=== PATIENT | female | born 1965 | race Caucasian/White ===

== ENCOUNTER 2020-10-14 14:00 | Outpatient (RCR) | payer OTHER, BC, SELFPAY ==
[2020-10-03 08:07] VITALS: BP 106/64; PULSE 75; O2SAT 96
== END 2020-11-10 11:09 | disposition other institution (70) ==
LOC: HO.PTWFD 14:00
PROVIDERS: PCP Internal Medicine; Visit Provider Internal Medicine
DX: R42 Dizziness and giddiness (principal)
CPT/HCPCS: 95992; 97110; 97161

== ENCOUNTER 2020-11-23 07:19 | Outpatient (REF) | payer OTHER, BC, SELFPAY ==
[2020-11-23 10:42] LABS: Hematocrit 42.8 % (37-47); Hemoglobin 14.2 g/dl (12.0-16.0); Mean Corpuscular HGB Conc 33.2 g/dl (31.0-35.0); Mean Corpuscular Hemoglobin 28.2 pg (27.0-33.0); Mean Corpuscular Volume 85.1 fL (80-98); Mean Platelet Volume 10.4 fL (9.4-12.3); Platelet Count 252 X10*3/uL (160-400); Red Blood Count 5.03 X10*6/uL (4.20-5.50); White Blood Count 5.1 X10*3/uL (4.8-10.8)
[2020-11-23 10:44] LABS: Glucose Urine UA NEG (NEG); Leukocyte Esterase Urine NEG (NEG); Nitrite Urine NEG (NEG); Specific Gravity - Urine 1.015 (1.005-1.025); Urine Blood TRACE (NEG); Urine Ketones NEG (NEG); Urine Protein NEG (NEG-TRACE)
[2020-11-23 10:46] LABS: Appearance Urine CLEAR; Color Urine YELLOW
[2020-11-23 10:58] LABS: Bacteria Urine TRACE /LPF; RBC Urine 0-2 /HPF (0); Squamous Epithelial Cell Urine 1+ /LPF; WBC Urine 0-2 /HPF (0-4)
[2020-11-23 11:06] LABS: Alanine Aminotransferase 12 U/L (0-31); Albumin Level 4.4 g/dL (3.5-5.0); Alkaline Phosphatase 63 U/L (39-117); Anion Gap 15 (12-20); Aspartate Amino Transferase 17 U/L (5-31); Bilirubin Total 0.6 mg/dL (0.0-1.0); Blood Urea Nitrogen 11 mg/dL (9-16); Carbon Dioxide 26 mmol/L (22-29); Chloride 105 mmol/L (96-108); Cholesterol 204 mg/dL; Estimated Glomerular Filt Rate > 60; Glucose Fasting 95 mg/dL (60-99); HDL Cholesterol 62 mg/dL; LDL Cholesterol Calculated 122 mg/dl; Potassium 4.9 mmol/L (3.3-5.1); Sodium 141 mmol/L (135-145); Total Protein 6.7 g/dL (6.5-8.0); Triglycerides 102 mg/dL
[2020-11-23 11:30] LABS: TSH reflex Free T4 2.73 uIU/mL (0.32-4.0)
== END 2020-11-23 07:20 | disposition home or self-care (01) ==
LOC: HO.WFDLDS 07:19
PROVIDERS: Visit Provider Internal Medicine
DX: Z00.00 Encounter for general adult medical examination without abnormal findings (principal)
CPT/HCPCS: 36415; 80053; 80061; 81001; 84443; 85027

== ENCOUNTER 2021-03-17 14:00 | Outpatient (RCR) | payer OTHER, BC, SELFPAY ==
[2021-03-10 07:03] VITALS: BP 122/70; PULSE 62; O2SAT 97
== END 2021-07-07 14:49 | disposition home or self-care (01) ==
LOC: HO.PTWFD 14:00
PROVIDERS: Visit Provider Internal Medicine
DX: R42 Dizziness and giddiness (principal)
CPT/HCPCS: 95992; 97161; 97535

== ENCOUNTER 2021-04-25 09:22 | Emergency (ER) | payer OTHER, BC, SELFPAY ==
[2021-04-25 09:45] VITALS: BP 138/70; PULSE 82; RESP 7; TEMP 37; O2SAT 97; BMI 37.8
--- NOTE | 2021-04-25 10:11 | ED_ITS ---
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 when disposing of the needle after it had been injected in the patient she stuck her right thumb, the patient was an elderly woman who denied having HIV or hepatitis medical history is not known at this point of the source patient Related Data Previous Rx's Medication Instructions Recorded citalopram 20 mg tablet 20 mg PO DAILY #90 tab 06/30/20 fluticasone propionate 110 1 puff INHALATION BID #12 g 09/23/20 mcg/actuation HFA aerosol inhaler (Flovent HFA) montelukast 10 mg tablet 10 mg PO DAILY #90 tab 02/21/21 Allergies Allergy/AdvReac Type Severity Reaction Status Date / Time Sulfa (Sulfonamide Allergy Unknown RASH Unverified 05/12/20 19:13 Antibiotics) CHILD, rash [SULFA (SULFONAMIDE ANTIBIOTICS)] SEASONAL ALLERGIES Allergy Unknown SNEEZE Uncoded 05/12/20 19:13 WATERY EYES Review of Systems Review of Systems: Positive for needlestick Negatives are no fever no chills no dizziness no weakness no fainting no feeling faint no headache no neck pain no chest pain no shortness of breath no skin rash Yes all other systems are reviewed and are negative [facility] Past Medical History Medical History (Updated 04/26/21 @ 00:00 by Chas Alexander) Annual physical exam Chronic asthma Depression Onychomycosis Overweight Sleep apnea Thyroid nodule Vertigo Surgical History H/O colonoscopy Family History Family History (Updated 11/25/20 @ 09:14 by Sana Person RN) Father HTN (hypertension) Mother HTN (hypertension) Myocardial infarct Social History Social History (Updated 11/25/20 @ 09:15 by Sana Person RN) Alcohol intake: current Alcohol intake frequency: holidays/special occasions only Advance Directives: Yes Advance Directives Information Provided: Yes Advance Directives on File: No Patient : No Physical Exam Vital Signs: Vital Signs: Last Vital Signs Temp 98.6 F 04/25/21 09:45 Pulse 82 04/25/21 09:45 Resp 7 L 04/25/21 09:45 BP 138/70 04/25/21 09:45 Pulse Ox 97 04/25/21 09:45 Body Mass Index 37.8 General appearance no acute distress Head is normocephalic atraumatic Neck is supple Respiratory no distress Left hand had normal skin and the needle puncture wound was not visible, no bleeding no tenderness no swelling Course Course Course Narrative: Patient understands this is a low risk stick but given that we have no reliable information about the source patient there is some risk and opted to take the prophylaxis and try to find more information about the source patient Labs were sent and she will follow with [facility] Medical Decision Making Lab Data Result diagrams: 04/25/21 10:37 04/25/21 10:37 Labs: Lab Results 04/25/21 04/25/21 04/25/21 Range/Units 10:37 10:37 10:37 WBC 6.4 (4.8-10.8) X10*3/uL RBC 4.81 (4.20-5.50) X10*6/uL Hgb 13.6 (12.0-16.0) g/dl Hct 41.1 (37-47) % MCV 85.4 (80-98) fL MCH 28.3 (27.0-33.0) pg MCHC 33.1 (31.0-35.0) g/dl RDW 12.7 (11.0-16.0) % Plt Count 249 (160-400) X10*3/uL MPV 9.6 (9.4-12.3) fL Immature Gran % (Auto) 0.2 (0.0-0.4) % Neut % (Auto) 65.4 (45-73) % Lymph % (Auto) 25.4 (20-40) % Burnett % (Auto) 7.1 (2-11) % Eos % (Auto) 1.3 (0-4) % Baso % (Auto) 0.6 (0-2) % Lymph # (Auto) 1.6 (1.2-4.9) X10*3/uL Burnett # (Auto) 0.5 (0.1-1.2) X10*3/uL Eos # (Auto) 0.1 (0.0-0.4) X10*3/uL Baso # (Auto) 0.0 (0.0-0.2) X10*3/uL Abs Immat Gran (auto) 0.01 (0.00-0.03) X10*3/uL Absolute Neuts (auto) 4.2 (2.0-8.3) X10*3/uL Absolute Nucleated RBC 0.000 (0.0-0.012) X10*3/uL Nucleated RBC % (auto) 0.0 (0.0-0.2) /100WBC Sodium 140 (135-145) mmol/L Potassium 4.6 (3.3-5.1) mmol/L Chloride 107 (96-108) mmol/L Carbon Dioxide 25 (22-29) mmol/L Anion Gap 13 (12-20) BUN 16 (9-16) mg/dL Creatinine 0.86 (0.5-1.4) mg/dL Estim Creat Clear Calc 85.9 Estimated GFR > 60 Random Glucose 69 (60-115) mg/dL Calcium 9.7 D (8.4-10.2) mg/dL Total Bilirubin 0.4 (0.0-1.0) mg/dL Direct Bilirubin 0.2 (0.0-0.5) mg/dL AST 19 (5-31) U/L ALT 12 (0-31) U/L Alkaline Phosphatase 68 (39-117) U/L Total Protein 7.1 (6.5-8.0) g/dL Albumin 4.6 (3.5-5.0) g/dL Amylase 37 (28-100) U/L Lipase 36 (8-78) U/L Hep Bs Antigen Negative (Negative) Hep Bs Antibody NONREACTIVE (Nonreactive) Hep B Core Total Ab Nonreactive (Nonreactive) Hepatitis C Ab (EIA) Nonreactive (Nonreactive) HIV 1&2 Ab/P24 Ag 4thGn Nonreactive (Nonreactive) Discharge Plan Discharge Clinical Impression: Accidental hypodermic needlestick injury Patient Disposition: Home, Self-Care Additional Instructions: Because we have no reliable information on the source patient it was decided to start the HIV prophylaxis which is time dependent Follow with [facility] for lab results and help with decision making about continuation of prophylaxis for HIV It would be helpful to get medical history of the source patient to help decide the need for continued prophylaxis Return any time any worse condition or concerns Use sentress and Truvada as directed for HIV prophylaxis, you have a 5 day supply Prescriptions: No Action citalopram 20 mg tablet 20 mg PO DAILY Qty: 90 RF: 1 Flovent HFA 110 mcg/actuation HFA aerosol inhaler 1 puff inhalation BID Qty: 12 RF: 5 montelukast 10 mg tablet 10 mg PO DAILY Qty: 90 RF: 4 Referrals: [facility] [Provider Group] - 2 days (Needlestick injury, post exposure prophylaxis for HIV initiated) Stand Alone Forms: Work/School Release Interventions: ED Discharge Assessment Last Done: 04/25/21 11:06 Discharge Date/Time: 04/25/21 11:07
[2021-04-25 10:42] LABS: MANUAL DIFF FLAG NO
[2021-04-25 10:46] LABS: Basophils Percent Auto 0.6 % (0-2); Eosinophils Absolute Auto 0.1 X10*3/uL (0.0-0.4); Eosinophils Percent Auto 1.3 % (0-4); Hematocrit 41.1 % (37-47); Hemoglobin 13.6 g/dl (12.0-16.0); Imm Gran Abs Auto 0.01 X10*3/uL (0.00-0.03); Imm Gran Pct Auto 0.2 % (0.0-0.4); Lymphocytes Absolute Auto 1.6 X10*3/uL (1.2-4.9); Lymphocytes Percent Auto 25.4 % (20-40); Mean Corpuscular HGB Conc 33.1 g/dl (31.0-35.0); Mean Corpuscular Hemoglobin 28.3 pg (27.0-33.0); Mean Corpuscular Volume 85.4 fL (80-98); Mean Platelet Volume 9.6 fL (9.4-12.3); Monocytes Absolute Auto 0.5 X10*3/uL (0.1-1.2); Monocytes Percent Auto 7.1 % (2-11); Neutrophils Absolute Auto 4.2 X10*3/uL (2.0-8.3); Neutrophils Percent Auto 65.4 % (45-73); Platelet Count 249 X10*3/uL (160-400); Red Blood Count 4.81 X10*6/uL (4.20-5.50); Red Cell Distribution Width 12.7 % (11.0-16.0); White Blood Count 6.4 X10*3/uL (4.8-10.8)
[2021-04-25] MEDS: Post Exposure Medication Kit 1 KIT PO (10:48)
[2021-04-25 14:25] LABS: Alanine Aminotransferase 12 U/L (0-31); Albumin Level 4.6 g/dL (3.5-5.0); Alkaline Phosphatase 68 U/L (39-117); Anion Gap 13 (12-20); Aspartate Amino Transferase 19 U/L (5-31); Bilirubin Direct 0.2 mg/dL (0.0-0.5); Bilirubin Total 0.4 mg/dL (0.0-1.0); Blood Urea Nitrogen 16 mg/dL (9-16); Calcium 9.7 mg/dL (8.4-10.2); Carbon Dioxide 25 mmol/L (22-29); Chloride 107 mmol/L (96-108); Creatinine Clr Calc Pharmacy 85.9; Estimated Glomerular Filt Rate > 60; Glucose Random 69 mg/dL (60-115); Lipase 36 U/L (8-78); Potassium 4.6 mmol/L (3.3-5.1); Sodium 140 mmol/L (135-145); Total Protein 7.1 g/dL (6.5-8.0)
[2021-04-25 14:38] LABS: Amylase 37 U/L (28-100)
[2021-04-26 08:25] LABS: HBc Num1 0.07 S/CO (0.00-0.79); HBsAGNum1 0.16 S/CO (0.00-0.99); HIV AB/AG Nonreactive (Nonreactive); HIV Num 1 0.07 S/CO (0.00-0.99); Hepatitis B Core Antibody Nonreactive (Nonreactive); Hepatitis B Surface Antigen Negative (Negative); ~HepC Num1 0.19 S/CO (0.00-0.79); ~Hepatitis C Antibody Nonreactive (Nonreactive)
[2021-04-26 08:41] LABS: HBS Num1 0.34 mIU/mL (0-7.99); ~Hepatitis B Surface Antibody NONREACTIVE (Nonreactive)
== END 2021-04-25 11:07 | disposition home or self-care (01) ==
PROVIDERS: Physician Assistant Medical; Emergency Provider Emergency Medicine; PCP Internal Medicine
DX: Z77.21 Contact with and (suspected) exposure to potentially hazardous body fluids (principal)
CPT/HCPCS: 36415; 80048; 80076; 82150; 83690; 85025; 86704; 86706; 86803; 87340; 87389; 99283

== ENCOUNTER 2022-02-05 07:38 | Outpatient (REF) | payer OTHER, BC, SELFPAY ==
[2022-02-05 11:36] LABS: Alanine Aminotransferase 13 U/L (0-31); Albumin Level 4.3 g/dL (3.5-5.0); Alkaline Phosphatase 66 U/L (39-117); Aspartate Amino Transferase 15 U/L (5-31); Bilirubin Direct 0.2 mg/dL (0.0-0.5); Bilirubin Total 0.5 mg/dL (0.0-1.0); Cholesterol 233 mg/dL; HDL Cholesterol 60 mg/dL; LDL Cholesterol Calculated 153 mg/dl; Total Protein 6.8 g/dL (6.5-8.0); Triglycerides 102 mg/dL
[2022-02-05 11:52] LABS: Hepatitis B Core Antibody Nonreactive (Nonreactive)
[2022-02-05 11:54] LABS: HBS Num1 1.85 mIU/mL (0-7.99); HBc Num1 0.08 S/CO (0.00-0.79); HBsAGNum1 0.18 S/CO (0.00-0.99); HIV AB/AG Nonreactive (Nonreactive); HIV Num 1 0.06 S/CO (0.00-0.99); Hepatitis B Core Antibody Nonreactive (Nonreactive); Hepatitis B Surface Antigen Negative (Negative); ~Hepatitis B Surface Antibody NONREACTIVE (Nonreactive)
[2022-02-05 12:06] LABS: Vitamin D 25-OH Total 22.3 ng/mL (>30)
== END 2022-02-05 07:39 | disposition home or self-care (01) ==
LOC: HO.WFDLDS 07:38
PROVIDERS: Absent Provider Podiatrist; Visit Provider Internal Medicine
DX: Z00.00 Encounter for general adult medical examination without abnormal findings (principal); Z11.4 Encounter for screening for human immunodeficiency virus [HIV]; B35.1 Tinea unguium; X58.XXXA Exposure to other specified factors, initial encounter
CPT/HCPCS: 36415; 80061; 80076; 82306; 86704; 86706; 87340; 87389

== ENCOUNTER → 2022-04-23 10:55 | Outpatient (REF) | payer OTHER, BC, SELFPAY ==
--- NOTE | 2022-04-23 10:57 | HM_ITS ---
* Total monitoring time 6 days 23 hours. * Underlying rhythm is sinus. Average rate of 66/Min. Range 43 to 143/Min. * Rare supraventricular ectopy with minimal burden. * Very rare ventricular ectopy. * No sustained arrhythmias. * No patient events. MTDD
== END ==
LOC: HO.CARD 10:55
PROVIDERS: PCP Internal Medicine; Visit Provider Internal Medicine
DX: R00.1 Bradycardia, unspecified (principal); R42 Dizziness and giddiness
CPT/HCPCS: 93242

== ENCOUNTER 2022-05-25 08:07 | Outpatient (REF) | payer OTHER, BC, SELFPAY ==
[2022-05-25 11:56] LABS: MANUAL DIFF FLAG NO
[2022-05-25 12:00] LABS: Basophils Absolute Auto 0.1 X10*3/uL (0.0-0.2); Basophils Percent Auto 1.2 % (0-2); Eosinophils Absolute Auto 0.2 X10*3/uL (0.0-0.4); Eosinophils Percent Auto 3.1 % (0-4); Hematocrit 43.2 % (37.0-47.0); Hemoglobin 13.9 g/dl (12.0-16.0); Imm Gran Abs Auto 0.02 X10*3/uL (0.00-0.03); Imm Gran Pct Auto 0.4 % (0.0-0.4); Mean Corpuscular HGB Conc 32.2 g/dl (31.0-35.0); Mean Corpuscular Hemoglobin 27.4 pg (27.0-33.0); Mean Corpuscular Volume 85.2 fL (80.0-98.0); Mean Platelet Volume 9.8 fL (9.4-12.3); Monocytes Absolute Auto 0.4 X10*3/uL (0.1-1.2); Monocytes Percent Auto 7.4 % (2-11); Neutrophils Absolute Auto 3.6 x10*3/uL (2.0-8.3); Neutrophils Percent Auto 68.9 % (45-73); Platelet Count 265 X10*3/uL (160-400); Red Blood Count 5.07 X10*6/uL (4.20-5.50); White Blood Count 5.2 X10*3/uL (4.8-10.8)
[2022-05-25 12:08] LABS: Estimated Average Glucose 105 mg/dL; Hemoglobin A1c % 5.3 %
[2022-05-25 12:40] LABS: Alanine Aminotransferase 15 U/L (0-31); Albumin Level 4.4 g/dL (3.5-5.0); Alkaline Phosphatase 66 U/L (39-117); Anion Gap 12 (12-20); Aspartate Amino Transferase 18 U/L (5-31); Bilirubin Total 0.2 mg/dL (0.0-1.0); Blood Urea Nitrogen 15 mg/dL (9-16); Calcium 9.1 mg/dL (8.4-10.2); Carbon Dioxide 26 mmol/L (22-29); Chloride 106 mmol/L (96-108); Estimated Glomerular Filt Rate > 60; Glucose Fasting 91 mg/dL (60-99); Iron 96 mcg/dL (30-160); Percent Iron Saturation 25 % (15-50); Potassium 4.9 mmol/L (3.3-5.1); Sodium 139 mmol/L (135-145); Total Iron Binding Capacity 377 mcg/dL (228-428); Total Protein 6.9 g/dL (6.5-8.0); Unsaturated Iron Binding 281 ug/dL
[2022-05-25 12:52] LABS: TSH reflex Free T4 1.33 uIU/mL (0.32-4.0)
[2022-05-28 08:26] LABS: HBS Num1 1.22 mIU/mL (0-7.99); HBc Num1 0.07 S/CO (0.00-0.79); HBsAGNum1 0.15 S/CO (0.00-0.99); HIV AB/AG Nonreactive (Nonreactive); HIV Num 1 0.13 S/CO (0.00-0.99); Hepatitis B Core Antibody Nonreactive (Nonreactive); Hepatitis B Surface Antigen Negative (Negative); ~Hepatitis B Surface Antibody NONREACTIVE (Nonreactive)
== END 2022-05-25 08:08 | disposition home or self-care (01) ==
LOC: HO.WFDLDS 08:07
PROVIDERS: Visit Provider Internal Medicine
DX: Z00.00 Encounter for general adult medical examination without abnormal findings (principal); Z11.4 Encounter for screening for human immunodeficiency virus [HIV]; R42 Dizziness and giddiness; X58.XXXA Exposure to other specified factors, initial encounter
CPT/HCPCS: 36415; 80053; 83036; 83540; 83735; 84443; 85025; 86704; 86706; 87340; 87389

== ENCOUNTER → 2022-06-21 07:37 | Outpatient (REF) | payer OTHER, BC, SELFPAY ==
--- NOTE | 2022-06-21 07:39 | CA_ITS ---
Transthoracic Echocardiogram Patient (Last, First, Middle): Rand Sharma, Gender: Female Date of : 1965 Age: 57 Procedure Date: 06/21/2022 Procedure Type: Transthoracic Echocardiogram Location: OP Height: 162.56 cm Weight: 106.6 kg BSA: 2.09 m2 Heart Rate: bpm BP: 114 / 65 mmHg Attending Urologist: HARI Referring MD: Deepa Evangelista MD Symptoms: E78.5 - Hyperlipidemia, unspecified Study Quality: Fair Conclusions: - 1. Normal LV systolic function and diastolic filling pattern 2. Normal cardiac valvular Doppler 3. Normal RV systolic pressure 4. No gross pericardial effusion Findings Left Ventricle The visually estimated ejection fraction is between 55-60%. Spectral Doppler is indicative of a normal filling pattern. Right Ventricle Normal right ventricular cavity size and systolic function. Atria Both atria are normal in size. Interatrial shunt cannot be excluded. Aortic Valve Normal aortic valve structure and function. There is no aortic valve stenosis. There is no aortic valve regurgitation. Mitral Valve Normal mitral valve structure and function. There is trace mitral valve regurgitation. There is no mitral valve stenosis. Pulmonic Valve The pulmonic valve is likely normal. Tricuspid Valve Normal tricuspid valve structure. There is trace tricuspid valve regurgitation. The right ventricular systolic pressure is normal. The right ventricular systolic pressure is 15 mmHg. Normal right atrial pressure. There is no evidence of pulmonary hypertension. Great Vessels All visible segments of the aorta are normal in size. The pulmonary artery was not well visualized. Venous The inferior vena cava is normal in size and collapses greater than 50% with inspiration. Pericardium/Pleural There is no evidence of pericardial effusion. Prior Study Comparison No significant change compared to prior study dated: 05/21/2018. Measurements 2D Linear Measurements IVSd: 0.94 0.6-0.9/0.6-1.0 cm LVIDd: 4.88 3.9-5.3/4.2-5.9 cm LVIDd Index: 2.33 2.4-3.2/2.2-3.1 cm/m2 LVIDs: 2.99 2.0-3.6 cm LVPWd: 1.04 0.7-1.1 cm LA Diam: 3.40 2.7-3.8/3.0-4.0 cm LAIDs Index: 1.63 1.5-2.3 cm/m2 LV Mass: 307.44 67-162/88-224 g LV Mass Index: 147.10 43-95/49-115 g/m2 LVOT Diam: 2.30 3.0+(-)1.3 cm 2D Systolic Function EF 4C: 54.50 >55% EF 2C: 53.90 >55% Mitral Valve MV Pk E: 0.77 MV PK A: 0.64 MV Decel Time: 211.00 E/A: 1.20 E'Lateral: 12.20 E'Medial: 7.72 E/E' Med: 10.00 E/E' Lat: 6.30 PHT: 62.00 MVA PHT: 3.55 Decel Arthur: 3.65 Aortic Valve AoV Pk Heri: 1.30 AoV Mn Heri: 0.89 AoV VTI: 0.35 AoV Pk Grad: 7.00 Aov Mn Grad: 4.00 DESI Cont.VTI: 3.06 LVOT LVOT Pk Heri: 0.97 LVOT Mn Heri: 0.67 LVOT VTI: 0.26 LVOT Pk Grad: 4.00 LVOT Mn Grad: 2.00 LVOT Diam: 2.30 LVOT Area: 4.15 Diastolic Function MV Pk E: 0.77 MV Pk A: 0.64 E/A: 1.20 E'Medial: 7.72 E/E' Med: 10.00 E' Laterial: 12.20 E/E' Lat: 6.30 Right Ventricle TAPSE (mm): 26.30 TVS' Heri: 11.50 Tricuspid Valve TR Pk Heri: 1.71 TR Pk Grad: 12.00 RA Press: 3.00 RVSP: 15.00 Great Vessels Aorta Sinus of Valsalva: 3.94 2.0-3.[address] [place]: 3.16 1.7-3.4 cm Ao Asc: 3.60 2.1-3.4 cm Updated in Other Vendor System with Status of Final Chandler Francis MD electronically signed on 06/22/2022 8:31:02 AM with status of Final
== END ==
LOC: HO.CARD 07:37
PROVIDERS: PCP Internal Medicine; Visit Provider Internal Medicine
DX: R00.1 Bradycardia, unspecified (principal); E78.5 Hyperlipidemia, unspecified
CPT/HCPCS: 93306

== ENCOUNTER 2023-05-21 08:29 | Outpatient (REF) | payer OTHER, BC, SELFPAY ==
[2023-05-21 08:47] LABS: MANUAL DIFF FLAG NO
[2023-05-21 09:02] LABS: Basophils Absolute Auto 0.1 X10*3/uL (0.0-0.2); Basophils Percent Auto 0.8 % (0-2); Eosinophils Absolute Auto 0.1 X10*3/uL (0.0-0.4); Eosinophils Percent Auto 1.9 % (0-4); Hemoglobin 13.8 g/dl (12.0-16.0); Imm Gran Abs Auto 0.02 X10*3/uL (0.00-0.03); Imm Gran Pct Auto 0.3 % (0.0-0.4); Lymphocytes Absolute Auto 1.3 X10*3/uL (1.2-4.9); Lymphocytes Percent Auto 22.1 % (20-40); Mean Corpuscular HGB Conc 32.1 g/dl (31.0-35.0); Mean Corpuscular Hemoglobin 27.4 pg (27.0-33.0); Mean Corpuscular Volume 85.5 fL (80.0-98.0); Mean Platelet Volume 9.4 fL (9.4-12.3); Monocytes Absolute Auto 0.4 X10*3/uL (0.1-1.2); Monocytes Percent Auto 6.9 % (2-11); Platelet Count 278 X10*3/uL (160-400); Red Blood Count 5.03 X10*6/uL (4.20-5.50); Red Cell Distribution Width 13.3 % (11.0-16.0); White Blood Count 5.9 X10*3/uL (4.8-10.8)
[2023-05-21 09:45] LABS: Alanine Aminotransferase 9 U/L (0-31); Albumin Level 4.2 g/dL (3.5-5.0); Alkaline Phosphatase 73 U/L (39-117); Anion Gap 14 (12-20); Aspartate Amino Transferase 15 U/L (5-31); Bilirubin Total 0.6 mg/dL (0.0-1.0); Blood Urea Nitrogen 15 mg/dL (9-16); Calcium 9.4 mg/dL (8.4-10.2); Carbon Dioxide 23 mmol/L (22-29); Chloride 108 mmol/L (96-108); Cholesterol 200 mg/dL (<200); Estimated Glomerular Filt Rate > 60; Glucose Fasting 107 mg/dL (60-99); HDL Cholesterol 67 mg/dL (>40); LDL Cholesterol Calculated 116 mg/dL (<100); Potassium 4.5 mmol/L (3.3-5.1); Sodium 140 mmol/L (135-145); Triglycerides 87 mg/dL (<150)
[2023-05-21 09:52] LABS: TSH reflex Free T4 1.56 uIU/mL (0.32-4.0); Vitamin D 25-OH Total 34.6 ng/mL (>30)
== END 2023-05-21 08:30 | disposition home or self-care (01) ==
LOC: HO.LAB 08:29
PROVIDERS: PCP Internal Medicine; Visit Provider Internal Medicine
DX: Z00.00 Encounter for general adult medical examination without abnormal findings (principal); R00.1 Bradycardia, unspecified; E78.5 Hyperlipidemia, unspecified; E66.3 Overweight
CPT/HCPCS: 36415; 80053; 80061; 82306; 84443; 85025

== ENCOUNTER 2023-05-30 12:56 | Outpatient (AMB) | payer OTHER, BC, SELFPAY ==
[2023-05-30 12:57] VITALS: BP 122/76; PULSE 69; O2SAT 96; BMI 41.0
--- NOTE | 2023-05-30 12:57 | MHC.PC.OV ---
Vital Signs 05/30/23 12:57 Height 5 ft 4 in Weight 239 lb BMI 41.0 BP 122/76 Blood Pressure Location Lt brachial Position Sitting Pulse 69 Pulse Source Pulse Oximeter Pulse Oximetry (%) 96 Oxygen Delivery Method Room Air Intake Visit Reasons: annual PE Intake Note: Pt is here today for PE. Allergies Sulfa (Sulfonamide Antibiotics) [SULFA (SULFONAMIDE ANTIBIOTICS)] Allergy (Unknown, Unverified 05/30/23 12:59) RASH CHILD, rash SEASONAL ALLERGIES Allergy (Unknown, Uncoded 05/30/23 12:59) SNEEZE WATERY EYES Medication List - Last Reconciled 05/30/23 by Deepa Evangelista MD albuterol sulfate 90 mcg/actuation (ProAir HFA) 2 puffs inhalation Q6H PRN citalopram 20 mg PO DAILY CPAP CPAP supplies-tubing, head gear, Air fit N20 nasal cushion-medium fluticasone propionate 110 mcg/actuation (Flovent HFA) 1 puff inhalation BID montelukast 10 mg PO DAILY terbinafine HCl 250 mg PO DAILY Tobacco use date assessed: 05/30/23 Dental Screening Dental Screen Date: 05/30/23 Did you have a dental visit in the last 12 months?: Yes Did you have a dental problem in the last 6 months where you did not have access to dental care?: No Was dental information given to patient?: Patient has dentist HPI annual PE HPI Details Pt presents for PE. PFSH Medical History (Updated 05/30/23 @ 13:35 by Deepa Evangelista MD) Dysplastic nevi Needle exposure Onychomycosis Thyroid nodule Sleep apnea Depression Overweight Chronic asthma Annual physical exam Vertigo Surgical History (Updated 05/30/23 @ 13:35 by Deepa Evangelista MD) H/O colonoscopy Family History Father HTN (hypertension) Mother HTN (hypertension) Myocardial infarct Social History Housing: House Alcohol intake: current Alcohol intake frequency: holidays/special occasions only Patient Tobacco Use Status: Never used Tobacco e-Cigarette/Vaping Use: Never Used Current occupational status: employed Cognitive needs: No Hearing needs: No Vision needs: Yes Questionnaire PHQ-9 Over the last 2 weeks, how often have you been bothered by any of the following problems? 1. Little interest or pleasure in doing things: several days 2. Feeling down, depressed, or hopeless: not at all 3. Trouble falling or staying asleep, or sleeping too much: several days 4. Feeling tired or having little energy: not at all 5. Poor appetite or overeating: not at all 6. Feeling bad about yourself - or that you are a failure or have let yourself or your family down: not at all 7. Trouble concentrating on things, such as reading the newspaper or watching television: not at all 8. Moving or speaking so slowly that other people could have noticed. Or the opposite - being so fidgety or restless that you have been moving around a lot more than usual: not at all 9. Thoughts that you would be better off or of hurting yourself in some way: not at all Total score: 2 Depression Screening Interpretation: Negative Depression Screening Done: Yes Source: Developed by Drs. Peter Kothari, Leslee Fletcher, Jorge Lugo and colleagues, with an educational min from [employer]. Thrive Questionnaire Date Thrive assessed: 05/30/23 I am a: Patient What is your living situation today?: I have a steady place to live Within the past 12 months, did the food you bought not last and you didn't have the money to get more?: Never true Within the past 12 months, did you worry whether your food would run out before you got money to buy more?: Never true Do you have trouble paying for medicines?: No Do you have trouble getting transportation to medical appointments?: No Do you have trouble paying your heating and electricity bill?: No Do you have trouble taking care of your child, family member or friend?: No Do you have trouble with day-to-day activities such as bathing, preparing meals, shopping, managing finances, etc.?: No Are you currently unemployed and looking for a job?: No Are you interested in more education?: No Please select the resources that you would like help with: None AUDIT C Alcohol Use Questionnaire (AUDIT-C) 1. How often do you have a drink containing alcohol?: Monthly or less 2. How many drinks containing alcohol do you have on a typical day when you are drinking?: 1 or 2 3. How often do you have six or more drinks on one occasion?: Never Total Score: 1 GERTRUDIS-7 AMB Questionnaire GERTRUDIS-7 Date GERTRUDIS - 7 assessed: 05/30/23 Feeling nervous, anxious, or on edge: 1 = Several days Not being able to stop or control worryin = Not at all Worrying too much about different things: 0 = Not at all Trouble relaxin = Not at all Being so restless that it is hard to sit still: 0 = Not at all Becoming easily annoyed or irritable: 1 = Several days Feeling afraid as if something awful might happen: 0 = Not at all Total GERTRUDIS-7 score (0-4 normal; 5-9 mild; 10-14 moderate; 15-21 severe): 2 Source: Developed by Drs. Peter Kothari, Leslee Fletcher, Jorge Lugo and colleagues, with an educational min from [employer]. Review of Systems Const All systems reviewed & are unremarkable except as noted in HPI and below Reports no additional complaints Eyes Reports no additional complaints ENT Reports no additional complaints Card Reports no additional complaints Resp Reports no additional complaints GI Reports no additional complaints Reports no additional complaints Physical exam (Primary Care) Vital Signs: Last Vital Signs Pulse 69 05/30/23 12:57 BP 122/76 05/30/23 12:57 Pulse Ox 96 05/30/23 12:57 Oxygen Delivery Method Room Air 05/30/23 12:57 BMI result Body Mass Index 41.0 Tobacco/Smoking Status: Tobacco use Status Tobacco use date assessed 05/30/23 05/30/23 13:01 Patient Tobacco Use Status Never used Tobacco 05/30/23 13:01 e-Cigarette/Vaping Use Never Used 05/30/23 12:57 Depression Screening Interpretation: Negative Thrive Assessment: Date of Thrive Assessment Date Thrive assessed 05/29/22 05/30/23 12:57 Const General: no acute distress HENMT Head: Yes normal to inspection Face and sinus: Yes normal facial exam Throat: Yes posterior oropharynx normal Eyes General: appearance normal, both eyes and all related structures Neck Neck: Yes no lymphadenopathy and Yes supple Resp Effort & Inspection: normal respiratory effort Auscultation: clear to auscultation bilaterally Cardio Rhythm: regular rhythm Heart sounds: S1 normal heart sound present and S2 normal heart sound present GI Inspection: Yes normal to inspection Palpation (GI): Soft to palpation Percussion: Yes normal to percussion Auscultation: normal bowel sounds Assessment and Plan Assessment & Plan (1) Normal pelvic exam: Comment: nipple maker En, +HPV 06/2023 Code(s): Z01.419 - Encounter for gynecological examination (general) (routine) without abnormal findings (2) Hyperlipidemia: Code(s): E78.5 - Hyperlipidemia, unspecified Plan: Continue low-cholesterol diet (3) Annual physical exam: Code(s): Z00.00 - Encounter for general adult medical examination without abnormal findings Plan: Well-balanced diet regular exercise discussed with the patient. She is up today with a mammogram Pap smear and colonoscopy. Continue citalopram for chronic anxiety. Return for physical in 1 year (4) Overweight: Code(s): E66.3 - Overweight Plan: Weight loss discussed with the patient (5) Hx of screening mammography: Comment: [facility] 2022 Code(s): Z92.89 - Personal history of other medical treatment Orders: Orders Comprehensive [place]. Panel Fast 365 Days E66.3 - Overweight, E78.5 - Hyperlipidemia, unspecified, Z00.00 - Encounter for general adult medical examination without abnormal findings Complete Blood Count Auto Diff 365 Days E66.3 - Overweight, E78.5 - Hyperlipidemia, unspecified, Z00.00 - Encounter for general adult medical examination without abnormal findings TSH reflex Free T4 365 Days E66.3 - Overweight, E78.5 - Hyperlipidemia, unspecified, Z00.00 - Encounter for general adult medical examination without abnormal findings Lipid Panel 365 Days E66.3 - Overweight, E78.5 - Hyperlipidemia, unspecified, Z00.00 - Encounter for general adult medical examination without abnormal findings Medications: Refilled citalopram 20 mg PO DAILY 90 tabs 3RF Coding Level of Care Code Est Pt Prev Care 40-64y(51824) Diagnoses Normal pelvic exam Z01.419 Hyperlipidemia E78.5 Annual physical exam Z00.00 Overweight E66.3 Hx of screening mammography Z92.89
== END 2023-05-30 13:39 | disposition home or self-care (01) ==
PROVIDERS: Visit Provider Internal Medicine
DX: Z00.00 Encounter for general adult medical examination without abnormal findings (principal); E78.5 Hyperlipidemia, unspecified; E66.3 Overweight; Z92.89 Personal history of other medical treatment
CPT/HCPCS: 99396

== ENCOUNTER 2024-06-09 08:03 | Outpatient (REF) | payer OTHER, BC, SELFPAY ==
[2024-06-09 11:11] LABS: MANUAL DIFF FLAG NO
[2024-06-09 11:29] LABS: Basophils Absolute Auto 0.1 X10*3/uL (0.0-0.2); Basophils Percent Auto 0.9 % (0-2); Eosinophils Absolute Auto 0.1 X10*3/uL (0.0-0.4); Eosinophils Percent Auto 2.2 % (0-4); Hematocrit 42.2 % (37.0-47.0); Hemoglobin 13.8 g/dl (12.0-16.0); Imm Gran Abs Auto 0.03 X10*3/uL (0.00-0.03); Imm Gran Pct Auto 0.5 % (0.0-0.4); Lymphocytes Absolute Auto 1.3 X10*3/uL (1.2-4.9); Lymphocytes Percent Auto 22.7 % (20-40); Mean Corpuscular HGB Conc 32.7 g/dl (31.0-35.0); Mean Corpuscular Hemoglobin 27.5 pg (27.0-33.0); Mean Corpuscular Volume 84.1 fL (80.0-98.0); Mean Platelet Volume 9.5 fL (9.4-12.3); Monocytes Absolute Auto 0.4 X10*3/uL (0.1-1.2); Monocytes Percent Auto 6.5 % (2-11); Neutrophils Absolute Auto 3.9 x10*3/uL (2.0-8.3); Neutrophils Percent Auto 67.2 % (45-73); Platelet Count 290 X10*3/uL (160-400); Red Blood Count 5.02 X10*6/uL (4.20-5.50); Red Cell Distribution Width 13.2 % (11.0-16.0); White Blood Count 5.8 X10*3/uL (4.8-10.8)
[2024-06-09 11:52] LABS: Alanine Aminotransferase 13 U/L (0-31); Albumin Level 4.2 g/dL (3.5-5.0); Alkaline Phosphatase 71 U/L (39-117); Anion Gap 12 (12-20); Aspartate Amino Transferase 16 U/L (5-31); Bilirubin Total 0.4 mg/dL (0.0-1.0); Blood Urea Nitrogen 15 mg/dL (9-16); Calcium 9.4 mg/dL (8.4-10.2); Carbon Dioxide 26 mmol/L (22-29); Chloride 108 mmol/L (96-108); Cholesterol 210 mg/dL (<200); Estimated Glomerular Filt Rate > 60; Glucose Fasting 106 mg/dL (60-99); HDL Cholesterol 60 mg/dL (>40); LDL Cholesterol Calculated 124 mg/dL (<100); Potassium 4.1 mmol/L (3.3-5.1); Sodium 142 mmol/L (135-145); Total Protein 6.9 g/dL (6.5-8.0); Triglycerides 134 mg/dL (<150)
== END 2024-06-09 08:04 | disposition home or self-care (01) ==
LOC: HO.WFDLDS 08:03
PROVIDERS: Visit Provider Internal Medicine
DX: Z00.00 Encounter for general adult medical examination without abnormal findings (principal); E66.3 Overweight; E78.5 Hyperlipidemia, unspecified
CPT/HCPCS: 36415; 80053; 80061; 84443; 85025

== ENCOUNTER 2024-06-12 11:35 | Outpatient (AMB) | payer OTHER, BC, SELFPAY ==
[2024-06-12 11:40] VITALS: BP 122/80; PULSE 78; O2SAT 98; BMI 43.1
--- NOTE | 2024-06-12 11:40 | MHC.PC.OV ---
Vital Signs 06/12/24 11:40 Height 5 ft 4 in Weight 251 lb BMI 43.1 BP 122/80 Blood Pressure Location Rt brachial Position Sitting Pulse 78 Pulse Source Pulse Oximeter Pulse Oximetry (%) 98 Oxygen Delivery Method Room Air Intake Visit Reasons: Annual PE Intake Note: pt is here for annual exam, mammo up to date Equipment Maint Tech Required: No Accompanied by: Self / Same As Patient Allergies Sulfa (Sulfonamide Antibiotics) [SULFA (SULFONAMIDE ANTIBIOTICS)] Allergy (Unknown, Verified 06/12/24 11:40) RASH CHILD, rash SEASONAL ALLERGIES Allergy (Unknown, Uncoded 05/30/23 12:59) SNEEZE WATERY EYES Medication List - Last Reconciled 06/12/24 by Deepa Evangelista MD albuterol sulfate 90 mcg/actuation (ProAir HFA) 2 puffs inhalation Q6H PRN citalopram 20 mg PO DAILY CPAP CPAP supplies-tubing, head gear, Air fit N20 nasal cushion-medium fluticasone propionate 110 mcg/actuation (Flovent HFA) 1 puff inhalation BID montelukast 10 mg PO DAILY Tobacco use date assessed: 06/12/24 Dental Screening Dental Screen Date: 06/12/24 Did you have a dental visit in the last 12 months?: Yes Did you have a dental problem in the last 6 months where you did not have access to dental care?: No Was dental information given to patient?: Patient has dentist HPI Annual PE HPI Details Patient presents for physical. She has been decreasing caloric intake increasing exercise trying to lose weight unsuccessfully for 6 months. [facility] Medical History Dysplastic nevi Needle exposure Onychomycosis Thyroid nodule Sleep apnea Depression Overweight Chronic asthma Annual physical exam Vertigo Surgical History H/O colonoscopy Family History Father HTN (hypertension) Mother HTN (hypertension) Myocardial infarct Social History Housing: House Alcohol intake: current Alcohol intake frequency: holidays/special occasions only Patient Tobacco Use Status: Never used Tobacco e-Cigarette/Vaping Use: Never Used Current occupational status: employed Cognitive needs: No Hearing needs: No Vision needs: Yes Questionnaire PHQ-9 Over the last 2 weeks, how often have you been bothered by any of the following problems? 1. Little interest or pleasure in doing things: several days 2. Feeling down, depressed, or hopeless: several days 3. Trouble falling or staying asleep, or sleeping too much: not at all 4. Feeling tired or having little energy: several days 5. Poor appetite or overeating: several days 6. Feeling bad about yourself - or that you are a failure or have let yourself or your family down: several days 7. Trouble concentrating on things, such as reading the newspaper or watching television: not at all 8. Moving or speaking so slowly that other people could have noticed. Or the opposite - being so fidgety or restless that you have been moving around a lot more than usual: not at all 9. Thoughts that you would be better off or of hurting yourself in some way: not at all Total score: 5 Depression Screening Interpretation: Negative Depression Screening Done: Yes 80733 - PHQ-9 Billing: Yes Source: Developed by Drs. Peter Kothari, Leslee Fletcher, Jorge Lugo and colleagues, with an educational min from [employer]. Thrive Questionnaire Date Thrive assessed: 06/12/24 I am a: Patient What is your living situation today?: I have a steady place to live Within the past 12 months, did the food you bought not last and you didn't have the money to get more?: Never true Within the past 12 months, did you worry whether your food would run out before you got money to buy more?: Never true Do you have trouble paying for medicines?: No Do you have trouble getting transportation to medical appointments?: No Do you have trouble paying your heating and electricity bill?: No Do you have trouble taking care of your child, family member or friend?: No Do you have trouble with day-to-day activities such as bathing, preparing meals, shopping, managing finances, etc.?: No Are you currently unemployed and looking for a job?: No Are you interested in more education?: No Please select the resources that you would like help with: None Currently or been in a relationship where the following occur: No concerns reported THRIVE Score: 0 AUDIT C Alcohol Use Questionnaire (AUDIT-C) 1. How often do you have a drink containing alcohol?: 2-4 times a month 2. How many drinks containing alcohol do you have on a typical day when you are drinking?: 1 or 2 3. How often do you have six or more drinks on one occasion?: Never Total Score: 2 Score Reviewed/Action Taken: Yes GERTRUDIS-7 AMB Questionnaire GERTRUDIS-7 Date GERTRUDIS - 7 assessed: 06/12/24 Feeling nervous, anxious, or on edge: 1 = Several days Not being able to stop or control worryin = Several days Worrying too much about different things: 1 = Several days Trouble relaxin = Several days Being so restless that it is hard to sit still: 0 = Not at all Becoming easily annoyed or irritable: 1 = Several days Feeling afraid as if something awful might happen: 0 = Not at all Total GERTRUDIS-7 score (0-4 normal; 5-9 mild; 10-14 moderate; 15-21 severe): 5 Source: Developed by Drs. Peter Kothari, Leslee Fletcher, Jorge Lugo and colleagues, with an educational min from [employer]. GERTRUDIS-7 Assessment Billing GERTRUDIS-7 Assessment Tool: GERTRUDIS-7 Assessment 63727 Review of Systems Const All systems reviewed & are unremarkable except as noted in HPI and below ENT Reports no additional complaints Card Reports no additional complaints Resp Reports no additional complaints GI Reports no additional complaints Reports no additional complaints Physical exam (Primary Care) Vital Signs: Last Vital Signs Pulse 78 06/12/24 11:40 BP 122/80 06/12/24 11:40 Pulse Ox 98 06/12/24 11:40 Oxygen Delivery Method Room Air 06/12/24 11:40 BMI result Body Mass Index 43.1 Tobacco/Smoking Status: Tobacco use Status Tobacco use date assessed 06/12/24 06/12/24 11:48 Patient Tobacco Use Status Never used Tobacco 06/12/24 11:48 e-Cigarette/Vaping Use Never Used 06/12/24 11:48 PHQ-9: PHQ-9 Score PHQ-9: Total score 5 06/12/24 11:48 Depression Screening Interpretation: Negative Thrive Assessment: Date of Thrive Assessment Date Thrive assessed 06/12/24 06/12/24 11:48 Currently or been in a relationship where the following occur: No concerns reported Const General: no acute distress HENMT Head: Yes normal to inspection Ears: hearing grossly normal bilaterally Face and sinus: Yes normal facial exam Throat: Yes posterior oropharynx normal Eyes General: appearance normal, both eyes and all related structures Neck Neck: Yes no lymphadenopathy and Yes supple Resp Effort & Inspection: normal respiratory effort Auscultation: clear to auscultation bilaterally Cardio Rhythm: regular rhythm Heart sounds: S1 normal heart sound present and S2 normal heart sound present GI Inspection: Yes normal to inspection Palpation (GI): Soft to palpation Percussion: Yes normal to percussion Auscultation: normal bowel sounds Coding Level of Care Code Est Pt Prev Care 40-64y(56746) Diagnoses Annual physical exam Z00.00 Overweight E66.3 Hyperlipidemia E78.5 Additional Codes GERTRUDIS-7 Assessment Billing - GERTRUDIS-7 Assessment Tool: GERTRUDIS-7 Assessment 13955 ([id number]) Assessment & Plan Assessment & Plan (1) Annual physical exam: Code(s): Z00.00 - Encounter for general adult medical examination without abnormal findings Category: Medical Plan: Well-balanced diet regular physical activity weight loss discussed with the patient. She is up-to-date with mammogram colonoscopy and Pap smear by manager line (2) Overweight: Comment: BMI is 43.1 06/18 Code(s): E66.3 - Overweight Category: Medical Plan: Decreasing caloric intake increasing physical activity the and weight loss discussed with the patient. she will Zebound to facilitate weight lost and decrease cardiovascular complications of obesity including coronary artery disease heart attack CVA. 2.5 mg weekly we will be tried for the 1st month. Side effects discussed with the patient. (3) Hyperlipidemia: Code(s): E78.5 - Hyperlipidemia, unspecified Category: Medical Plan: Low-cholesterol diet and discussed with the patient Orders: Orders Comprehensive Hope. Panel Fast 1 Year E66.3 - Overweight, E78.5 - Hyperlipidemia, unspecified, Z00.00 - Encounter for general adult medical examination without abnormal findings Complete Blood Count Auto Diff 1 Year E66.3 - Overweight, E78.5 - Hyperlipidemia, unspecified, Z00.00 - Encounter for general adult medical examination without abnormal findings Lipid Panel 1 Year E66.3 - Overweight, E78.5 - Hyperlipidemia, unspecified, Z00.00 - Encounter for general adult medical examination without abnormal findings Hemoglobin A1c 1 Year E66.3 - Overweight, E78.5 - Hyperlipidemia, unspecified, Z00.00 - Encounter for general adult medical examination without abnormal findings TSH reflex Free T4 1 Year E66.3 - Overweight, E78.5 - Hyperlipidemia, unspecified, Z00.00 - Encounter for general adult medical examination without abnormal findings UA w Microscopic 1 Year E66.3 - Overweight, E78.5 - Hyperlipidemia, unspecified, Z00.00 - Encounter for general adult medical examination without abnormal findings Medications: New tretinoin 0.025% (Retin-A) 1 appl topical BEDTIME 15 grams 0RF Zepbound (tirzepatide (weight loss)) for 4 weeks 2.5 mg (0.5 mL) subcut QWEEK 2 mL 1RF NS
== END 2024-06-12 12:32 | disposition home or self-care (01) ==
PROVIDERS: PCP Internal Medicine; Visit Provider Internal Medicine
DX: Z00.00 Encounter for general adult medical examination without abnormal findings (principal); E66.3 Overweight; E78.5 Hyperlipidemia, unspecified

== ENCOUNTER → 2024-06-12 11:35 | Outpatient (BNVA) | payer OTHER, BC, SELFPAY | PROVIDERS: PCP Internal Medicine; Visit Provider Internal Medicine | DX: Z00.00 Encounter for general adult medical examination without abnormal findings (principal); E66.3 Overweight; Z68.41 Body mass index [BMI] 40.0-44.9, adult; E78.5 Hyperlipidemia, unspecified | CPT/HCPCS: 96127 ==

== ENCOUNTER 2024-09-28 13:29 | Outpatient (AMB) | payer OTHER, BC, SELFPAY ==
[2024-09-28 13:35] VITALS: BP 122/82; PULSE 81; RESP 20; TEMP 36.7; O2SAT 97; BMI 41.4
--- NOTE | 2024-09-28 13:35 | A.OFFPC_ITS ---
Vital Signs 09/28/24 13:35 Height 5 ft 4 in Weight 241 lb BMI 41.4 BP 122/82 Blood Pressure Location Lt brachial Position Sitting Respiration 20 Pulse 81 Pulse Source Pulse Oximeter Temp 98.1 F Temp Source Oral Pulse Oximetry (%) 97 Oxygen Delivery Method Room Air Intake Visit Reasons: Follow up on weight med Intake Note: Pt is here today for a follow up visit on weight medication. Allergies Sulfa (Sulfonamide Antibiotics) [SULFA (SULFONAMIDE ANTIBIOTICS)] Allergy (Unknown, Verified 09/28/24 13:36) RASH CHILD, rash SEASONAL ALLERGIES Allergy (Unknown, Uncoded 09/28/24 13:36) SNEEZE WATERY EYES Medication List - Last Reconciled 09/28/24 by Deepa Evangelista MD albuterol sulfate 90 mcg/actuation (ProAir HFA) 2 puffs inhalation Q6H PRN cetirizine (Zyrtec) 10 mg PO DAILY PRN citalopram 20 mg PO DAILY CPAP CPAP supplies-tubing, head gear, Air fit N20 nasal cushion-medium fluticasone propionate 110 mcg/actuation (Flovent HFA) 1 puff inhalation BID montelukast 10 mg PO DAILY tretinoin 0.025% (Retin-A) 1 appl topical BEDTIME Zepbound (tirzepatide (weight loss)) 5 mg (0.5 mL) subcut QWEEK NS Tobacco use date assessed: 09/28/24 Dental Screening Dental Screen Date: 09/28/24 Did you have a dental visit in the last 12 months?: Yes Did you have a dental problem in the last 6 months where you did not have access to dental care?: No Was dental information given to patient?: Patient has dentist HPI Follow up on weight med HPI Details Pt presents for the follow-up on taking Zepbound for 3 more. Patient lost 10 lb and has been tolerating medication well. She reports decreasing caloric intake and being more physically active. [facility] Medical History (Updated 09/28/24 @ 14:11 by Deepa Evangelista MD) Chronic asthma Dysplastic nevi Needle exposure Onychomycosis Thyroid nodule Sleep apnea Depression Overweight Annual physical exam Vertigo Surgical History H/O colonoscopy Family History Father HTN (hypertension) Mother HTN (hypertension) Myocardial infarct Social History Housing: House Alcohol intake: current Alcohol intake frequency: holidays/special occasions only Patient Tobacco Use Status: Never used Tobacco e-Cigarette/Vaping Use: Never Used service: No Current occupational status: employed Cognitive needs: No Hearing needs: No Vision needs: Yes Questionnaire PHQ-9 Over the last 2 weeks, how often have you been bothered by any of the following problems? 1. Little interest or pleasure in doing things: not at all 2. Feeling down, depressed, or hopeless: not at all 3. Trouble falling or staying asleep, or sleeping too much: not at all 4. Feeling tired or having little energy: not at all 5. Poor appetite or overeating: not at all 6. Feeling bad about yourself - or that you are a failure or have let yourself or your family down: not at all 7. Trouble concentrating on things, such as reading the newspaper or watching television: not at all 8. Moving or speaking so slowly that other people could have noticed. Or the o pposite - being so fidgety or restless that you have been moving around a lot more than usual: not at all 9. Thoughts that you would be better off or of hurting yourself in some way: not at all Total score: 0 Depression Screening Interpretation: Negative Depression Screening Done: Yes 36063 - PHQ-9 Billing: Yes Source: Developed by Drs. Peter Kothari, Leslee Fletcher, Jorge Lugo and colleagues, with an educational min from [email or web address]. Thrive Questionnaire Date Thrive assessed: 09/28/24 I am a: Patient What is your living situation today?: I have a steady place to live Within the past 12 months, did the food you bought not last and you didn't have the money to get more?: Never true Within the past 12 months, did you worry whether your food would run out before you got money to buy more?: Never true Do you have trouble paying for medicines?: No Do you have trouble getting transportation to medical appointments?: No Do you have trouble paying your heating and electricity bill?: No Do you have trouble taking care of your child, family member or friend?: No Do you have trouble with day-to-day activities such as bathing, preparing meals, shopping, managing finances, etc.?: No Are you currently unemployed and looking for a job?: No Are you interested in more education?: No Please select the resources that you would like help with: None Currently or been in a relationship where the following occur: No concerns reported THRIVE Score: 0 AUDIT C Alcohol Use Questionnaire (AUDIT-C) 1. How often do you have a drink containing alcohol?: 2-4 times a month 2. How many drinks containing alcohol do you have on a typical day when you are drinking?: 1 or 2 3. How often do you have six or more drinks on one occasion?: Never Total Score: 2 GERTRUDIS-7 AMB Questionnaire GERTRUDIS-7 Date GERTRUDIS - 7 assessed: 09/28/24 Feeling nervous, anxious, or on edge: 0 = Not at all Not being able to stop or control worryin = Not at all Worrying too much about different things: 0 = Not at all Trouble relaxin = Not at all Being so restless that it is hard to sit still: 0 = Not at all Becoming easily annoyed or irritable: 0 = Not at all Feeling afraid as if something awful might happen: 0 = Not at all Total GERTRUDIS-7 score (0-4 normal; 5-9 mild; 10-14 moderate; 15-21 severe): 0 Source: Developed by Drs. Peter Kothari, Leslee Fletcher, Jorge Lugo and colleagues, with an educational min from [email or web address]. GERTRUDIS-7 Assessment Billing GERTRUDIS-7 Assessment Tool: GERTRUDIS-7 Assessment 49170 Review of Systems Const All systems reviewed & are unremarkable except as noted in HPI and below Eyes Reports no additional complaints ENT Reports no additional complaints Card Reports no additional complaints Resp Reports no additional complaints GI Reports no additional complaints Reports no additional complaints Physical exam (Primary Care) Vital Signs: Last Vital Signs Temp 98.1 F 09/28/24 13:35 Pulse 81 09/28/24 13:35 Resp 20 09/28/24 13:35 BP 122/82 09/28/24 13:35 Pulse Ox 97 09/28/24 13:35 Oxygen Delivery Method Room Air 09/28/24 13:35 BMI result Body Mass Index 41.4 Tobacco/Smoking Status: Tobacco use Status Tobacco use date assessed 09/28/24 09/28/24 13:38 Patient Tobacco Use Status Never used Tobacco 09/28/24 13:38 e-Cigarette/Vaping Use Never Used 09/28/24 13:38 PHQ-9: PHQ-9 Score PHQ-9: Total score 0 09/28/24 13:38 Depression Screening Interpretation: Negative Thrive Assessment: Date of Thrive Assessment Date Thrive assessed 09/28/24 09/28/24 13:38 Currently or been in a relationship where the following occur: No concerns reported Const General: no acute distress HENMT Head: Yes normal to inspection Eyes General: appearance normal, both eyes and all related structures Neck Neck: Yes supple Resp Effort & Inspection: normal respiratory effort Auscultation: clear to auscultation bilaterally Cardio Rhythm: regular rhythm Heart sounds: S1 normal heart sound present and S2 normal heart sound present Coding Level of Care Code Est Pt Level 4 (30231) Diagnoses Overweight E66.3 Chronic asthma J45.909 Additional Codes GERTRUDIS-7 Assessment Billing - GERTRUDIS-7 Assessment Tool: GERTRUDIS-7 Assessment 88774 ([id number]) PHQ-9 - 64994 - PHQ-9 Billing: Yes ([id number]) Assessment & Plan Assessment & Plan (1) Overweight: Comment: BMI is 43.1 06/18 Code(s): E66.3 - Overweight Category: Medical Plan: Increase Zepbound to 7.5 mg weekly for the next month and then 10 mg. Follow-up in 2 months. Continue decreasing caloric intake increasing physical activity (2) Chronic asthma: Code(s): J45.909 - Unspecified asthma, uncomplicated Category: Medical Plan: cont Flovent and montelukast Medications: New Zepbound (tirzepatide (weight loss)) 7.5 mg (0.5 mL) subcut QWEEK 2 mL 0RF NS Zepbound (tirzepatide (weight loss)) start after 1 month of Zepbound 7.5 mg 10 mg (0.5 mL) subcut QWEEK 2 mL 0RF NS Discontinued Zepbound (tirzepatide (weight loss)) Discontinued Reason: Doctor's Order 5 mg (0.5 mL) subcut QWEEK 2 mL 1RF NS
== END 2024-09-28 14:07 | disposition home or self-care (01) ==
PROVIDERS: PCP Internal Medicine; Visit Provider Internal Medicine
DX: E66.3 Overweight (principal); J45.909 Unspecified asthma, uncomplicated

== ENCOUNTER → 2024-09-28 13:29 | Outpatient (BNVA) | payer OTHER, BC, SELFPAY | PROVIDERS: PCP Internal Medicine; Visit Provider Internal Medicine | DX: E66.3 Overweight (principal); Z68.41 Body mass index [BMI] 40.0-44.9, adult; J45.909 Unspecified asthma, uncomplicated | CPT/HCPCS: 96127 ==

== ENCOUNTER 2024-12-04 13:56 | Outpatient (AMB) | payer OTHER, BC, SELFPAY ==
--- NOTE | 2024-12-04 14:14 | MHC.PC.OV ---
Vital Signs 12/04/24 14:18 Height 5 ft 4 in Weight 236 lb BMI 40.5 BP 124/78 Blood Pressure Location Lt brachial Position Sitting Respiration 18 Pulse 76 Pulse Source Pulse Oximeter Temp 98.0 F Temp Source Oral Pulse Oximetry (%) 96 Oxygen Delivery Method Room Air Intake Visit Reasons: Followup weight loss Intake Note: Pt is here today for a follow up visit on weight loss. Allergies Sulfa (Sulfonamide Antibiotics) [SULFA (SULFONAMIDE ANTIBIOTICS)] Allergy (Unknown, Verified 12/04/24 14:19) RASH CHILD, rash SEASONAL ALLERGIES Allergy (Unknown, Uncoded 12/04/24 14:19) SNEEZE WATERY EYES Medication List - Last Reconciled 12/04/24 by Deepa Evangelista MD albuterol sulfate 90 mcg/actuation (ProAir HFA) 2 puffs inhalation Q6H PRN cetirizine (Zyrtec) 10 mg PO DAILY PRN citalopram 20 mg PO DAILY CPAP CPAP supplies-tubing, head gear, Air fit N20 nasal cushion-medium fluticasone propionate 110 mcg/actuation TAKE 1 PUFF BY MOUTH TWICE A DAY montelukast 10 mg PO DAILY Pulmicort Flexhaler 90 mcg/actuation (budesonide) 2 inhalations inhalation BID NS tretinoin 0.025% (Retin-A) 1 appl topical BEDTIME Zepbound (tirzepatide (weight loss)) 12.5 mg (0.5 mL) subcut QWEEK NS Tobacco use date assessed: 09/28/24 Dental Screening Dental Screen Date: 09/28/24 HPI Followup weight loss HPI Details Patient presents for the follow-up. She has been taking 10 mg of zip bound for the last 3 weeks and tolerating well. Patient has been exercising regularly decreasing caloric intake and lost 15 lb since starting the medication. Chronic asthma is controlled on fluticasone and montelukast. Chronic anxiety stable on citalopram. Patient has been using CPAP for obstructive sleep apnea every night, [facility] Medical History (Updated 09/28/24 @ 14:11 by Deepa Evangelista MD) Chronic asthma Dysplastic nevi Needle exposure Onychomycosis Thyroid nodule Sleep apnea Depression Overweight Annual physical exam Vertigo Surgical History H/O colonoscopy Family History Father HTN (hypertension) Mother HTN (hypertension) Myocardial infarct Social History Housing: House Alcohol intake: current Alcohol intake frequency: holidays/special occasions only Patient Tobacco Use Status: Never used Tobacco e-Cigarette/Vaping Use: Never Used service: No Current occupational status: employed Cognitive needs: No Hearing needs: No Vision needs: Yes Questionnaire Thrive Questionnaire Date Thrive assessed: 09/28/24 I am a: Patient What is your living situation today?: I have a steady place to live Within the past 12 months, did the food you bought not last and you didn't have the money to get more?: Never true Within the past 12 months, did you worry whether your food would run out before you got money to buy more?: Never true Do you have trouble paying for medicines?: No Do you have trouble getting transportation to medical appointments?: No Do you have trouble paying your heating and electricity bill?: No Do you have trouble taking care of your child, family member or friend?: No Do you have trouble with day-to-day activities such as bathing, preparing meals, shopping, managing finances, etc.?: No Are you currently unemployed and looking for a job?: No Are you interested in more education?: No Please select the resources that you would like help with: None Currently or been in a relationship where the following occur: No concerns reported THRIVE Score: 0 GERTRUDIS-7 AMB Questionnaire GERTRUDIS-7 Date GERTRUDIS - 7 assessed: 09/28/24 Source: Developed by Drs. Peter Kothari, Leslee Fletcher, Jorge Lugo and colleagues, with an educational min from [employer]. Review of Systems Const All systems reviewed & are unremarkable except as noted in HPI and below Eyes Reports no additional complaints Card Reports no additional complaints Resp Reports no additional complaints GI Reports no additional complaints Reports no additional complaints Physical exam (Primary Care) Vital Signs: Last Vital Signs Temp 98.0 F 12/04/24 14:18 Pulse 76 12/04/24 14:18 Resp 18 12/04/24 14:18 BP 124/78 12/04/24 14:18 Pulse Ox 96 12/04/24 14:18 Oxygen Delivery Method Room Air 12/04/24 14:18 BMI result Body Mass Index 40.5 Tobacco/Smoking Status: Tobacco use Status Tobacco use date assessed 09/28/24 12/04/24 14:15 Patient Tobacco Use Status Never used Tobacco 12/04/24 14:15 e-Cigarette/Vaping Use Never Used 12/04/24 14:15 Thrive Assessment: Date of Thrive Assessment Date Thrive assessed 09/28/24 12/04/24 14:15 Currently or been in a relationship where the following occur: No concerns reported Const General: no acute distress HENMT Face and sinus: Yes normal facial exam Neck Neck: Yes no lymphadenopathy and Yes supple Resp Effort & Inspection: normal respiratory effort Auscultation: clear to auscultation bilaterally Cardio Rhythm: regular rhythm Heart sounds: S1 normal heart sound present and S2 normal heart sound present GI Inspection: Yes normal to inspection Coding Level of Care Code Est Pt Level 4 (59849) Diagnoses Chronic asthma J45.909 Hyperlipidemia E78.5 Overweight E66.3 Assessment & Plan Assessment & Plan (1) Chronic asthma: Code(s): J45.909 - Unspecified asthma, uncomplicated Category: Medical Plan: Continue fluticasone inhaler montelukast and Zyrtec in the allergy season (2) Hyperlipidemia: Code(s): E78.5 - Hyperlipidemia, unspecified Category: Medical Plan: Continue low-cholesterol diet (3) Overweight: Comment: BMI is 43.1 06/18 Code(s): E66.3 - Overweight Category: Medical Plan: Continue Zepbound 10 mg weekly for the rest of the month and then increase to 12.5 mg weekly. Patient will continue decreasing caloric intake and regular physical activity. She will return for physical in May with a fasting labs before Medications: New Zepbound (tirzepatide (weight loss)) 12.5 mg (0.5 mL) subcut QWEEK 2 mL 2RF NS Discontinued Zepbound (tirzepatide (weight loss)) start after 1 month of Zepbound 7.5 mg Discontinued Reason: Doctor's Order 10 mg (0.5 mL) subcut QWEEK 2 mL 0RF NS Pulmicort Flexhaler 90 mcg/actuation (budesonide) Discontinued Reason: Doctor's Order 2 inhalations inhalation BID 3 ea 5RF NS
[2024-12-04 14:18] VITALS: BP 124/78; PULSE 76; RESP 18; TEMP 36.7; O2SAT 96; BMI 40.5
--- OUTSIDE RECORDS SUMMARY | 2024-12-04 14:18 | XMS_ITS ---
Author Organization [facility] Address [address] [place] [address] Care Team Providers Care Medical Management Trainer Name Role Phone Deepa Evangelista MD Primary Care Provider UnavailGloria Cleveland Unavailable [phone] Encounters Encounter Location Date Provider Diagnosis [facility] [address] [place] [address] 10/07/2024 Gloria Cabral Plan Of Treatment No Information Progress Notes * Isabel BLANCOOB:1965 (59 yo F)Acc No.[id number]:10/07/2024 Progress Note Patient:Rand GRAMAJO Provider:?Gloria Cabral DPM :1965???Age:59 Y???Sex:Female D ate:10/07/2024 Address:[address] [place], [place] [phone] Pcp:Deepa Evangelista MD Subjective: * Chief Complaints: * ??? * Medical History:? Objective: * Vitals:? Assessment: Plan: * Treatment: * Images: * The named appointment provid er may or may not be the originator of this progress note, and it is not deemed complete until electronically signed by the appointment provider. Sign off status: Pending * Provider:?Gloria Cabral DPM Date:?0 10/07/2024 Generated for Callie costello/Nicole/eTransmitting on:?12/04/2024 02:18 PM EDT
--- OUTSIDE RECORDS SUMMARY | 2024-12-04 14:18 | XMS_ITS | Patient Health Record ---
Author Organization [facility] Kanika Whittaker Address [address] [place] [address] Care Team Providers Care Documentation Improvement Specialist Name Role Phone Deepa Evangelista MD Primary Care Provider Unavaila Gloria Hawkins Unavailable [phone] Eleazar Bautista Unavailable [phone] Jeramy Torres Unavailable [phone] Allergies Allergen (clinical drug ingredient) Drug/Non Drug Allergy documented on EMR Reaction Allergy Type Onset Date Status sulfamethoxazole / trimethoprim Bactrim rash Drug Allergy Active Reason For Referral Diagnosis 1 Pain in right foot ( M79.671) Diagnosis 2 Tinea unguium (B35.1 ) Diagnosis 3 Plantar fascial fibr omatosis (M72.2) Diagnosis 4 Subungual hematoma o f toenail of left foot, initial encounter (S90.222A) Diagnosis 5 Pain in left foot (M 79.672) Diagnosis 6 Tinea pedis (B35.3) Diagnosis 7 Subungual hematoma o f toenail of right foot, initial encounter (S90.221A) Referring Provider First Name Deepa Referring Provider Last Name Tonja Referred Organization [facility] Annamarie gómez Panfilo Referred Provider Gloria Cabral Referred Address [address] [facility] [address] ,[place], [place],[address], Referred Provider Specialty Podiatry Referral Priority Routine Medications Medication SIG (Take, Route, Frequency, Duration) Notes Start Date End Date Status Tretinoin (Emollient) Active Piroxicam 20 MG 1 capsule with food Orally Once a day for 30 day(s) 04/16/2017 Not-Taking ProAir HFA 108 (90 Base) MCG/ACT TAKE 2 PUFFS EVERY 4 HOURS NEEDED Inhalation for 17 Not-Taking CeleXA 40 MG 0.5 tablet Orally Once a day for 30 day(s) Active Vitamin D (Ergocalciferol) 59337 UNIT TAKE ONE CAPSULE BY MOUTH WEEKLY ORAL 28 Oral for 28 Not-Taking Citalopram Hydrobromide 20 MG 1 tablet O rally Once a day for 30 day(s) Active LamISIL 250 MG 1 tablet Orally Once a day for 30 days 05/31/2017 Not-Taking Singulair 10 MG 1 tablet Orally Once a day for 30 day(s) Active Flovent HFA 110 MCG/ACT TAKE 1 PUFF TWIC E A DAY Inhalation for 30 Active Sertraline HCl 50 MG TAKE 1 TABLET BY MOUTH DAILY ORAL 30 Oral for 30 Not-Taking ZyrTEC Active Ketoconazole 2 % APPLY TO AFFECTED AREA TWICE A DAY External for 30 Not-Taking hydroCHLOROthiazide 12.5 MG TAKE ONE CAP MODESTO EVERY DAY Oral for 30 Not-Taking Zepbound Active Omeprazole 20 MG TAKE 1 CAPSULE EVERY DAY ONCE/DAY ORAL 30 Oral for 30 Not-Taking Immunizations Vaccine Route Administration Date Status Comme nts COVID-19 Moderna Vaccine Unknown 08/14/2021 Administered 1st 09/17/2020 2nd 10/15/2020 Social History Tobacco Use: Social History Observation Description Date Details (start date - stop date) Former Smoker NA - NA Tobacco Use/Smoking Question Answer Notes Are you a: former smoker Additional Findings: Tobacco Non-User Current no n-smoker Alcohol Screen Question Answer Notes Did you have a drink contain ing alcohol in the past year? Yes How often did you have a dri nk containing alcohol in the past year? 2 to 3 times a week (3 points) Points 3 Interpretation Positive Tobacco use other than smoking: Question Answer Notes Are you an other tobacco user? No Problems Problem Type SNOMED Code ICD Code Onset Dates Problem Status W/U Status Risk Notes Problem Plantar fascial fibromatosis (36913505) Plantar fascial fibromatosis (M72.2) Active confirmed Vital Signs Blood pressure diastolic 80 mm Hg 07/06/2024 Height 5ft 4in in 07/06/2024 Blood pressure systolic 120 mm Hg 07/06/2024 Weight 240 lbs 07/06/2024 BMI 41.19 kg/m2 07/06/2024 Encounters Encounter Location Date [facility] [address] 01/06/2024 Eleazar Bautista Tinea unguium B35.1 ; Pain in right foot M79.671 ; Plantar fascial fibromatosis M72.2 and Subungual hematoma of toenail, left, sequela S90.222S [address] [address] 07/06/2024 Gloria Cabral Pain in right toe(s) M79.674 ; Onychomycosis B35.1 and Pain in left toe(s) M79.[address] [address] 10/07/2024 Gloria Cabral Assessments Encounter Date Diagnosis (ICD Code) Assessment Notes Treatment Notes Treatment Clinical Notes Section Notes 01/06/2024 Tinea unguium (ICD-10 - B35.1) 01/06/2024 Pain in right foot (ICD-10 - M79.671) 07/06/2024 Pain in right toe(s) (ICD-10 - M79.674) 07/06/2024 Onychomycosis (ICD-10 - B35.1) 07/06/2024 Pain in left toe(s) (ICD-10 - M79.675) 01/06/2024 Plantar fascial fibromatosis (ICD-10 - M72.2) 01/06/2024 Subungual hematoma of toenail, left, sequela (ICD-10 - S90.222S) Plan Of Treatment Pending Test Test Name Order Date X ray : Foot, left 2V 02/19/2017 X ray : Foot, right 2V 02/19/2017 *Liver Function Test (LFT) 05/31/2017 *Liver Function Test (LFT) 02/01/2022 [id number] OF HEMATOMA/FLUID 021 [id number] TENDON SHEATH/LIGAMENT 1 Insurance Providers Payer Name Payer Address Payer Phone Subscriber Number Group Number Insured Name Patient Relationship to Insured Coverage Start Date Coverage End Date [employer] [address] [place] [address] [id number] Rand Sharma Self - patient is the insured [facility] [address] [place] [address] [id number] Peter Sharma Spouse - patient is the spouse of the insured Medical (General) History Medical History History ICD Code Anxiety asthma Back,Hip,and Knee pain Depression Hiatal hernia High blood pressure Reflux ( GERD) Chicken pox Sleep apnea thyroid nodule Vertigo Surgical History Surgery Date(Month/Year) section gall bladder
--- OUTSIDE RECORDS SUMMARY | 2024-12-04 14:18 | XMS_ITS ---
Author Organization [facility] Address [address] [place] [address] Care Team Providers Care Health Services Rn Name Role Phone Tonja CRUZ, Deepa Primary Care Provider Unavaila Gloria Hawkins Unavailable [phone] Jeramy Torres [phone] Encounters Encounter Location Date Provider Diagnosis [address] [address] 10/08/2024 Jeramy Torres Plan Of Treatment No Information Progress Notes * Isabel BLANCOOB:1965 (59 yo F)Acc No.[id number]:10/08/2024 Progress Note Patient:?Rand BLANCO Provider:?Jeramy Torres D.P.M. :1965???Age:59 Y???Sex:Female D ate:10/08/2024 Address:[address] [place], [place] [phone] Pcp:Deepa Evangelista MD Subjective: * Chief Complaints: * ??? * Medical History:? Objective: * Vitals:? Assessment: Plan: * Treatment: * Images: * The named appointment provid er may or may not be the originator of this progress note, and it is not deemed complete until electronically signed by the appointment provider. Sign off status: Pending * Provider:?Jeramy Torres D.P.M. Date:?09/26 Generated for Callie costello/Nicole/Robbin on:?12/04/2024 02:18 PM EDT
--- OUTSIDE RECORDS SUMMARY | 2024-12-04 14:19 | XMS_ITS ---
Author Organization [facility] Address [address] [place] [address] Care Team Providers Care Land Measurer Name Role Phone Deepa Evangelista MD Primary Care Provider UnavailGloria Cleveland [phone] REASON FOR VISIT CX 10/08 Encounters Encounter Location Date Provider Diagnosis [address] [address] 10/07/2024 Gloria Cabral Plan Of Treatment No Information Progress Notes * Isabel BLANCOOB:1965 (59 yo F)Acc No.[id number]:10/07/2024 Patient:?Rand BLANCO :1965???Age:59 Y???Sex:Female Address:[address] [place] [address], [phone] * true * Date:? Generated for Alejandrinai pravin/Nicole/eTransmitting on:?12/04/2024 02:18 PM EDT
== END 2024-12-04 14:55 | disposition home or self-care (01) ==
LOC: HO.HMCC 13:57
PROVIDERS: PCP Internal Medicine; Visit Provider Internal Medicine
DX: J45.909 Unspecified asthma, uncomplicated (principal); E78.5 Hyperlipidemia, unspecified; E66.3 Overweight

== ENCOUNTER → 2024-12-04 13:56 | Outpatient (BNVA) | payer OTHER, BC, SELFPAY | PROVIDERS: PCP Internal Medicine; Visit Provider Internal Medicine | DX: Z13.89 Encounter for screening for other disorder (principal) ==

== ENCOUNTER 2025-06-09 08:03 | Outpatient (REF) | payer OTHER, BC, SELFPAY ==
[2025-06-09 11:07] LABS: MANUAL DIFF FLAG NO
[2025-06-09 11:24] LABS: Hematocrit 42.2 % (37.0-47.0); Hemoglobin 14.2 g/dl (12.0-16.0); Imm Gran Abs Auto 0.02 X10*3/uL (0.00-0.03); Imm Gran Pct Auto 0.4 % (0.0-0.4); Lymphocytes Absolute Auto 1.4 X10*3/uL (1.2-4.9); Mean Corpuscular HGB Conc 33.6 g/dl (31.0-35.0); Mean Corpuscular Hemoglobin 27.7 pg (27.0-33.0); Mean Corpuscular Volume 82.4 fL (80.0-98.0); NRBC Abs Auto 0.000 X10*3/uL (0.0-0.012); NRBC Pct Auto 0.0 /100WBC (0.0-0.2); Platelet Count 285 X10*3/uL (160-400); Red Blood Count 5.12 X10*6/uL (4.20-5.50); White Blood Count 5.5 X10*3/uL (4.8-10.8)
[2025-06-09 11:48] LABS: Alanine Aminotransferase 14 U/L (0-31); Albumin Level 4.5 g/dL (3.5-5.0); Alkaline Phosphatase 71 U/L (39-117); Anion Gap 10 (12-20); Aspartate Amino Transferase 20 U/L (5-31); Blood Urea Nitrogen 14 mg/dL (9-16); Calcium 9.3 mg/dL (8.4-10.2); Carbon Dioxide 26 mmol/L (22-29); Chloride 108 mmol/L (96-108); Cholesterol 202 mg/dL (<200); Estimated Glomerular Filt Rate > 60; HDL Cholesterol 56 mg/dL (>40); Potassium 4.3 mmol/L (3.3-5.1); Sodium 140 mmol/L (135-145); Total Protein 7.0 g/dL (6.5-8.0); Triglycerides 97 mg/dL (<150)
[2025-06-09 14:10] LABS: Appearance Urine Clear; Glucose Urine UA Negative (Negative); PH 5.5 (5.0-9.0); Specific Gravity - Urine 1.015 (1.005-1.025); UMIC TRIGGER UA YES
== END 2025-06-09 08:04 | disposition home or self-care (01) ==
LOC: HO.WFDLDS 08:03
PROVIDERS: Visit Provider Internal Medicine
DX: Z00.00 Encounter for general adult medical examination without abnormal findings (principal); E78.5 Hyperlipidemia, unspecified; E66.3 Overweight; Z13.1 Encounter for screening for diabetes mellitus
CPT/HCPCS: 36415; 80053; 80061; 81001; 83036; 84443; 85025

== ENCOUNTER 2025-06-14 13:55 | Outpatient (AMB) | payer OTHER, BC, SELFPAY ==
[2025-06-14 13:57] VITALS: BP 122/82; PULSE 86; RESP 18; TEMP 36.6; O2SAT 97; BMI 38.8
--- NOTE | 2025-06-14 13:57 | MHC.PC.OV ---
Vital Signs 06/14/25 13:57 Height 5 ft 4 in Weight 226 lb BMI 38.8 BP 122/82 Blood Pressure Location Lt brachial Position Sitting Respiration 18 Pulse 86 Pulse Source Pulse Oximeter Temp 97.8 F Temp Source Oral Pulse Oximetry (%) 97 Oxygen Delivery Method Room Air Intake Visit Reasons: PE Intake Note: Pt is here today for PE. Allergies Sulfa (Sulfonamide Antibiotics) (SULFA (SULFONAMIDE ANTIBIOTICS)) Allergy (Unknown, Verified 06/14/25 13:58) RASH CHILD, rash SEASONAL ALLERGIES Allergy (Unknown, Uncoded 06/14/25 13:58) SNEEZE WATERY EYES Medication List - Last Reconciled 06/14/25 by Deepa Evangelista MD albuterol sulfate 90 mcg/actuation (ProAir HFA) 2 puffs inhalation Q6H PRN cetirizine (Zyrtec) 10 mg PO DAILY PRN citalopram 20 mg PO DAILY CPAP CPAP supplies-tubing, head gear, Air fit N20 nasal cushion-medium fluticasone propionate 110 mcg/actuation TAKE 1 PUFF BY MOUTH TWICE A DAY montelukast 10 mg PO DAILY permethrin 5% 1 appl topical Q14D 2 doses tretinoin 0.025% (Retin-A) 1 appl topical BEDTIME Zepbound (tirzepatide (weight loss)) 12.5 mg (0.5 mL) subcut QWEEK NS Tobacco use date assessed: 06/14/25 Dental Screening Dental Screen Date: 09/28/24 HPI PE HPI Details Pt presents for PE. She had lost another 10 lb on Zepbound. She has been decreasing caloric intake and increasing physical activity. [facility] Medical History Chronic asthma Dysplastic nevi Needle exposure Onychomycosis Thyroid nodule Sleep apnea Depression Overweight Annual physical exam Vertigo Surgical History H/O colonoscopy Family History Father HTN (hypertension) Mother HTN (hypertension) Myocardial infarct Social History Housing: House Alcohol intake: current Alcohol intake frequency: holidays/special occasions only Patient Tobacco Use Status: Never used Tobacco e-Cigarette/Vaping Use: Never Used service: No Current occupational status: employed Cognitive needs: No Hearing needs: No Vision needs: Yes Questionnaire PHQ-9 Over the last 2 weeks, how often have you been bothered by any of the following problems? 1. Little interest or pleasure in doing things: not at all 2. Feeling down, depressed, or hopeless: not at all 3. Trouble falling or staying asleep, or sleeping too much: not at all 4. Feeling tired or having little energy: not at all 5. Poor appetite or overeating: not at all 6. Feeling bad about yourself - or that you are a failure or have let yourself or your family down: not at all 7. Trouble concentrating on things, such as reading the newspaper or watching television: not at all 8. Moving or speaking so slowly that other people could have noticed. Or the opposite - being so fidgety or restless that you have been moving around a lot more than usual: not at all 9. Thoughts that you would be better off or of hurting yourself in some way: not at all Total score: 0 Depression Screening Interpretation: Negative Depression Screening Done: Yes Source: Developed by Drs. Peter Kothari, Leslee Fletcher, Jorge Lugo and colleagues, with an educational min from [employer]. Thrive Questionnaire Date Thrive assessed: 09/28/24 I am a: Patient What is your living situation today?: I have a steady place to live Within the past 12 months, did the food you bought not last and you didn't have the money to get more?: Never true Within the past 12 months, did you worry whether your food would run out before you got money to buy more?: Never true Do you have trouble paying for medicines?: No Do you have trouble getting transportation to medical appointments?: No Do you have trouble paying your heating and electricity bill?: No Do you have trouble taking care of your child, family member or friend?: No Do you have trouble with day-to-day activities such as bathing, preparing meals, shopping, managing finances, etc.?: No Are you currently unemployed and looking for a job?: No Are you interested in more education?: No Please select the resources that you would like help with: None Currently or been in a relationship where the following occur: No concerns reported THRIVE Score: 0 GERTRUDIS-7 AMB Questionnaire GERTRUDIS-7 Date GERTRUDIS - 7 assessed: 09/28/24 Source: Developed by Drs. Peter Kothari, Leslee Fletcher, Jorge Lugo and colleagues, with an educational min from [employer]. Review of Systems Const All systems reviewed & are unremarkable except as noted in HPI and below Eyes Reports no additional complaints ENT Reports no additional complaints Card Reports no additional complaints Resp Reports no additional complaints GI Reports no additional complaints Reports no additional complaints Musc Reports no additional complaints Physical exam (Primary Care) Vital Signs: Last Vital Signs Temp 97.8 F 06/14/25 13:57 Pulse 86 06/14/25 13:57 Resp 18 06/14/25 13:57 BP 122/82 06/14/25 13:57 Pulse Ox 97 06/14/25 13:57 Oxygen Delivery Method Room Air 06/14/25 13:57 BMI result Body Mass Index 38.8 Tobacco/Smoking Status: Tobacco use Status Tobacco use date assessed 06/14/25 06/14/25 14:03 Patient Tobacco Use Status Never used Tobacco 06/14/25 14:03 e-Cigarette/Vaping Use Never Used 06/14/25 14:03 PHQ-9: PHQ-9 Score PHQ-9: Total score 0 06/14/25 14:03 Depression Screening Interpretation: Negative Thrive Assessment: Date of Thrive Assessment Date Thrive assessed 09/28/24 06/14/25 14:03 Currently or been in a relationship where the following occur: No concerns reported Const General: no acute distress HENMT Head: Yes normal to inspection Ears: hearing grossly normal bilaterally Face and sinus: Yes normal facial exam Mouth: Normal oral and palatal mucosa present Teeth and gingiva: dentition normal Eyes General: appearance normal, both eyes and all related structures Neck Neck: Yes no lymphadenopathy and Yes supple Resp Effort & Inspection: normal respiratory effort Auscultation: clear to auscultation bilaterally Cardio Rhythm: regular rhythm Heart sounds: S1 normal heart sound present and S2 normal heart sound present GI Inspection: Yes normal to inspection Palpation (GI): Soft to palpation Percussion: Yes normal to percussion Auscultation: normal bowel sounds Coding Level of Care Code Est Pt Prev Care 40-64y(25111) Diagnoses Annual physical exam Z00.00 Chronic asthma J45.909 Overweight E66.3 Assessment & Plan Assessment & Plan (1) Annual physical exam: Code(s): Z00.00 - Encounter for general adult medical examination without abnormal findings Category: Medical Plan: Well-balanced diet regular physical activity discussed with the patient. She is up-to-date with the mammogram pelvic exam by instructor bridge colonoscopy (2) Chronic asthma: Code(s): J45.909 - Unspecified asthma, uncomplicated Category: Medical Plan: Continue current inhalers (3) Overweight: Comment: BMI is 43.1 06/18, BMI 38.8 05/2025 Code(s): E66.3 - Overweight Category: Medical Plan: Decreasing caloric intake increasing physical activity discussed with the patient. She will increase the dose of Zepbound to 15 mg weekly and will follow-up in 3 months Medications: New tirzepatide (weight loss) (Zepbound) 15 mg (0.5 mL) subcut QWEEK 6 mL 1RF Discontinued Zepbound (tirzepatide (weight loss)) Discontinued Reason: Doctor's Order 12.5 mg (0.5 mL) subcut QWEEK 6 mL 1RF NS
== END 2025-06-14 14:44 | disposition home or self-care (01) ==
LOC: HO.HMCC 13:56
PROVIDERS: PCP Internal Medicine; Visit Provider Internal Medicine
DX: Z00.00 Encounter for general adult medical examination without abnormal findings (principal); J45.909 Unspecified asthma, uncomplicated; E66.3 Overweight